=== PATIENT | female | born 1980 | race Caucasian/White ===

== ENCOUNTER 2016-04-19 09:43 | Emergency (ER) | payer OTHER ==
[~2016-04-19] VITALS: Ht 170.2 cm; Wt 115.5 kg
[~2016-04-19 09:43] MED LIST: NOMED
[2016-04-19 09:57] VITALS: BP 186/119; PULSE 80; RESP 15; O2SAT 97
--- NOTE | 2016-04-19 10:09 | ED.REPORT ---
HPI-Dental/Mouth Prob Date of Service Apr 19, 2016 ED Provider: Levar Perkins MD This is a 35 year old female presenting to the emergency department due to dental pain that began yesterday evening and worsened today. Pt reports breaking tooth #13 two months ago. Describes severe pain associated with sensitivity, was not improved with 600 mg ibuprofen. She has a dental appointment at [facility] today. Denies nausea, vomiting, or headache at this time. Nursing Notes Stated Complaint: LT SIDE UPPER TOOTH PAIN Chief Complaint: Dental Nursing Notes Reviewed: Yes Allergies: Coded Allergies: diphenhydramine HCl (Verified Allergy, Unknown, 08/11/15) Miscellaneous Medications No Historical Medication (No Historical Medication) Ea General Time Seen by MD: 10:08 Chief Complaint Tooth pain Hx Obtained From: Patient Arrived By: Walk-in Onset Occurred: Yesterday Symptom Duration: Since onset Severity: Current: Moderate Pertinent Negative: Pt denies other symptoms Recent Healthcare: No recent doctor visit, No recent hospitalization Similar Sx Previous: No Past Medical History Past Medical History previous necrotic abscess that was incised and drained Past Surgical History Pt denies Smoking History Current Every Day Smoker Social History Alcohol Use: "Social" Drug Use: THC Ambulatory Status Independent Review of Systems Constitutional: Denies: Chills, Fever Ears / Nose / Throat: Reports: Toothache, Denies: Earache bilateral, Nasal congestion Respiratory: Denies: Non-productive cough, Shortness of breath GI: Denies: Abdominal pain, Nausea, Vomiting Complete sys rev & neg: except as marked. Physical Exam Initial Vital Signs Vital Signs (First) Date Time Temp Pulse Resp B/P Pulse Ox O2 Delivery O2 Flow Rate FiO2 04/19/16 09:57 36.7 80 15 186/119 97 Room Air Initial VS: Reviewed General/Constitutional: Well-developed, Well-nourished Head / Eyes: Atraumatic, Normocephalic, PERRL Respiratory: Breath sounds normal, Clear to auscultation, No respiratory distress Cardiovascular: Regular rate & rhythm, Heart sounds normal, Intact distal pulses Abdomen / GI: Soft, Non-tender, No guarding, No rebound, No distention Extremities: Vascular intact, Neuro intact, No swelling, No tenderness Skin: Warm, Dry, No cyanosis Neurologic: Alert, Oriented, Nonfocal Psychiatric: Mood/affect normal, Behavior normal, Normal thought content ENT: Airway patent, Mucous membranes moist, Pharynx NL, No pooling of secretions, No trismus, No facial swelling Neck: Supple, No meningismus, Full range of motion, No adenopathy, No swelling , Non-tender, No masses Procedures Dental Nerve Block Dental Nerve Block Note: Left Block Performed by: ED physician Consent / Setup / Site Prep: Informed consent provided, Consent from patient Anesthesia: Inferior alveolar block Local Anesthesia: Bupivacaine 0.5% (6 ml) Post-Procedure / Complications: No complications, Condition improved, Tolerated procedure well, Patient stable, No bleeding Re-Eval/Medical Decision Med Decision/Clinical Course Left dental pain 1 day status post breaking tooth. Patient is going to the dentist today she is here for pain relief. She is given Toradol with improvement. I performed a left infra-alveolar nerve block with immediate pain control. She will go to the dentist today. No evidence of infection at this time. Re-Evaluation/Progress : Time of Eval: 11:00 Re-Evaluation/Progress Note: Dental nerve block Counseled Regarding: Diagnosis, Lab results, Need for follow-up Discharge & Departure Primary Impression: Toothache Disposition: Home Discharge Condition All VS Reviewed: Yes Condition: Stable Patient Instructions: Acute dental trauma (ED) Additional Instructions: Thank you for seeking care in the emergency department today. Follow up with your dentist today for further evaluation. Return to the emergency department for any new or worsening symptoms Referrals: Isabell Alejandro MD (PCP) Scribe Attestation Portions of this note were transcribed by Anny Anand. I, Dr. Perkins personally performed the history, physical exam and medical decision-making; I reviewed and confirmed the accuracy of the information in the transcribed note. Signed by: elida Shaver. 04/19/2016, 18:00. Levar Perkins MD Apr 19, 2016 10:09 ANNY ANAND Apr 19, 2016 10:17
[2016-04-19] MEDS ORDERED: Ketorolac 30 mg/mL 2 mL Inj IM ONE (10:10)
[2016-04-19] MEDS ORDERED: Bupivacaine 0.5% 50 mL Inj SUBQ ONE (10:40)
[2016-04-19] MEDS ORDERED: Bupivacaine 0.5%/EPI 50 mL Inj ONE (10:49)
[2016-04-19] MEDS ORDERED: Bupivacaine-MPF 0.5% 30 mL Inj ONE (10:50)
[2016-04-19 11:14] VITALS: BP 130/87; PULSE 63; RESP 16; O2SAT 97
== END 2016-04-19 11:15 | disposition home or self-care (01) ==
LOC: SED 09:43
DX: K08.89 Other specified disorders of teeth and supporting structures (principal); F17.200 Nicotine dependence, unspecified, uncomplicated; Z88.8 Allergy status to other drugs, medicaments and biological substances
CPT/HCPCS: 64400; 96372; 99284; J1885

== ENCOUNTER 2016-04-23 16:03 | Emergency (ER) | payer OTHER ==
[~2016-04-23] VITALS: Ht 167.6 cm; Wt 115.5 kg
[2016-04-23 16:16] VITALS: BP 122/81; PULSE 87; RESP 20; O2SAT 99
== END 2016-04-23 16:34 | disposition left against medical advice (07) ==
LOC: SED 16:03
DX: K08.89 Other specified disorders of teeth and supporting structures (principal); Z53.21 Procedure and treatment not carried out due to patient leaving prior to being seen by health care provider

== ENCOUNTER 2016-04-24 00:59 | Emergency (ER) | payer OTHER ==
[~2016-04-24] VITALS: Ht 167.6 cm; Wt 115.5 kg
[2016-04-24 01:02] VITALS: BP 161/106; PULSE 95; RESP 22; O2SAT 95
--- NOTE | 2016-04-24 01:26 | ED.REPORT ---
HPI-Dental/Mouth Prob Date of Service Apr 24, 2016 ED Provider: Cathryn Piper MD A 35 year old female with a history of dental caries and recent ED visits for dental pain presents to the ED complaining of tooth pain. The pt has a broken upper left tooth, which is causing significant pain. She denies difficulty breathing, difficulty swallowing, fevers, or chills. The pt is requesting a dental block to numb her tooth until her appointment with [facility] tomorrow. Nursing Notes Stated Complaint: TOOTH PAIN Chief Complaint: Dental Nursing Notes Reviewed: Yes Allergies: Coded Allergies: diphenhydramine HCl (Verified Allergy, Unknown, 08/11/15) Miscellaneous Medications No Historical Medication (No Historical Medication) Ea General Time Seen by MD: 01:24 Chief Complaint Tooth pain Hx Obtained From: Patient Arrived By: Walk-in Symptom Duration: Since onset Recent Healthcare: Recent doctor visit Similar Sx Previous: Yes Past Medical History Past Medical History previous necrotic abscess that was incised and drained dental caries Past Surgical History Pt denies Smoking History Current Every Day Smoker Social History Alcohol Use: "Social" Drug Use: THC Other Social History: Good social support Ambulatory Status Independent Review of Systems Review of Systems Note: denies difficulty breathing or swallowing Constitutional: Denies: Fever Ears / Nose / Throat: Reports: Toothache Respiratory: Denies: Non-productive cough GI: Denies: Abdominal pain Complete sys rev & neg: except as marked. Physical Exam Initial Vital Signs Vital Signs (First) Date Time Temp Pulse Resp B/P Pulse Ox O2 Delivery O2 Flow Rate FiO2 04/24/16 01:02 36.3 95 22 161/106 95 Room Air Initial VS: Reviewed ENT: Atraumatic, Airway patent, Mucous membranes moist extremely carious teeth with multiple fillings canine tooth left maxillary has a large defect, sublingual and submental spaces no surrounding erythema or edema no fluctuance not tender to percussion Neck: Atraumatic, Supple, Full range of motion General/Constitutional: Awake, Alert Head / Eyes: Atraumatic, Normocephalic, PERRL, EOMI Respiratory / Chest: Atraumatic, Breath sounds NL, Breath sounds = bilat, No respiratory distress Cardiovascular: Heart rate NL, Regular rhythm, Heart sounds NL Neurologic: Oriented X3, Speech NL, No motor deficits, No sensory deficits Abdomen: Atraumatic, Soft, Non-tender Back: Atraumatic, Full range of motion Upper Extremity / MS: Atraumatic, Full range of motion Lower Extremity / Pelvis / MS: Atraumatic, Full range of motion Skin: Atraumatic, Color NL, No rash, Warm, Dry Psychiatric: Affect NL, Mood NL Procedures Dental Nerve Block Dental Nerve Block Note: local block, upper left Time: 01:45 Block Performed by: ED physician Consent / Setup / Site Prep: Informed consent provided, Consent from patient , Time-out performed, Mucous membrane dried, Topical anesthetic gurinder, Hand hygiene observed, Stand sterile technique, Sterile drapes applied Local Anesthesia: Bupivacaine 0.5% Post-Procedure / Complications: No complications, Condition improved, Tolerated procedure well, Patient stable, No bleeding Re-Eval/Medical Decision Med Decision/Clinical Course 35-year-old female with multiple carious teeth here with dental pain. Differential diagnosis includes but is not limited to dental caries versus exposed nerve root versus apical abscess versus other dental abscess. Patient is just requesting numbing medicine for her mouth, and does not want anything further. Her exam is most consistent with an exposed nerve root and she has no evidence of infectious process. I have given her a bupivacaine block and she has an appointment tomorrow morning with dental. She is aware and amenable to discharge. Source of Hx: Old records Re-Evaluation/Progress : Time of Eval: 01:45 Patient Status: Condition improved Re-Evaluation/Progress Note: Pt rechecked, who is comfortable. She is informed of her diagnosis and the plan for discharge. The pt understands and agrees with the plan. All questions were addressed at this time. Counseled Regarding: Diagnosis, Need for follow-up, When/why to return to ED Discharge & Departure Primary Impression: Pain, dental Disposition: Home Discharge Condition All VS Reviewed: Yes Condition: Stable Patient Instructions: Acute dental trauma (ED), Dental Caries (ED) Additional Instructions: Thank you for entrusting us with your care. Keep your appointment at [facility] tomorrow. Return to the emergency department if you develop any new or worsening symptoms. Referrals: Isabell Alejandro MD (PCP) Scribe Attestation Portions of this note were transcribed by Kalia Noland. I, Dr. Piper personally performed the history, physical exam and medical decision-making; I reviewed and confirmed the accuracy of the information in the transcribed note. Signed by: Freddy Segundo, 04/24/2016 and 0212. copies to: Isabell Alejandro MD,Cathryn Marie MD Apr 24, 2016 01:26 KALIA NOLAND Apr 24, 2016 01:40
[2016-04-24] MEDS ORDERED: Bupivacaine-MPF 0.5% 30 mL Inj ONE (01:38)
[2016-04-24] MEDS ORDERED: Bupivacaine 0.5% 50 mL Inj SUBQ ONE (01:40)
== END 2016-04-24 01:58 | disposition home or self-care (01) ==
LOC: SED 00:59
DX: K08.89 Other specified disorders of teeth and supporting structures (principal); K02.9 Dental caries, unspecified; F17.210 Nicotine dependence, cigarettes, uncomplicated; F12.10 Cannabis abuse, uncomplicated; Z88.8 Allergy status to other drugs, medicaments and biological substances

== ENCOUNTER 2016-10-12 15:43 | Emergency (ER) | payer OTHER ==
[~2016-10-12] VITALS: Ht 170.2 cm; Wt 114.0 kg
[2016-10-12 15:51] VITALS: BP 132/79; PULSE 76; RESP 22; O2SAT 98
--- NOTE | 2016-10-12 15:51 | ED.REPORT ---
HPI-General Illness Date of Service Oct 12, 2016 ED Provider: Atilio Mcknight MD Patient is a 36 year old female who presents to the ED complaining of chest pain onset earlier today. Associated symptoms include a mildly productive cough. The patient rates the pain as an 8/10 and describes it as sharp, radiating around to the back bilaterally. She has not noticed anything that improves or exacerbates the pain. The patient reports that she had a cold last week. She denies fever, headache, chills, vision changes, abdominal pain, constipation, diarrhea, itching, rash, weakness, numbness, hematuria or hematochezia. No other complaints at this time. Nursing Notes Stated Complaint: CHEST PRESSURE Nursing Notes Reviewed: Yes Allergies: Coded Allergies: diphenhydramine HCl (Verified Allergy, Unknown, 08/11/15) Scheduled Azithromycin (Zithromax (Z-Pilo)) 250 Mg Tablet 250 MG PO DIRECTED Take two tablets by mouth on day 1, then take one tablet daily on days 2 through 5. Miscellaneous Medications No Historical Medication (No Historical Medication) Ea General Time Seen by MD: 15:50 Chief Complaint Chest pain Hx Obtained From: Patient Arrived By: Walk-in Sudden in Onset?: Yes Onset Occurred: 1 - 4 hours ago Symptom Duration: Since onset Location: : Chest Quality: Painful, Sharp Radiation: : Back Severity: Current: Pain level 8 out of 10 Recent Healthcare: Recent doctor visit Similar Sx Previous: No Past Medical History Past Medical History previous necrotic abscess that was incised and drained dental caries ovarian cysts Past Surgical History Pt denies Family History heart disease Smoking History Current Every Day Smoker Social History Alcohol Use: "Social" Drug Use: Denies drug use, THC Other Social History: Good social support Ambulatory Status Independent Review of Systems Full Review of Systems Constitutional: Denies: Chills, Fever Respiratory: Reports: Prod cough, clear, Denies: Shortness of breath Cardiovascular: Reports: Chest pain GI: Denies: Abdominal pain, Constipation, Diarrhea, Hematochezia, Nausea, Vomiting Female: Denies: Hematuria Musculoskeletal: Denies: Back pain Skin: Denies Itching, Denies Rash Neurologic: Denies: Headache, Numbness, Vision change, Weakness Complete sys rev & neg: except as marked. Physical Exam Nursing note and vitals reviewed. Constitutional: Well-developed, well-nourished. Not diaphoretic. Head: Normocephalic and atraumatic. Mouth/Throat: Oropharynx is clear and moist. No oropharyngeal exudate. Eyes: EOM are normal. Pupils are equal, round, and reactive to light. Neck: Supple, no tracheal deviation. Cardiovascular: Normal rate, regular rhythm. Equal and intact distal pulses throughout. Pulmonary/Chest: Effort normal and breath sounds normal. No respiratory distress. Abdominal: Soft. No distension. There is no tenderness rebound, or guarding. Bowel sounds present. Musculoskeletal: Range of motion grossly intact, moving all extremities. No edema or tenderness appreciated. Neurological: AOx3. Grossly nonfocal exam. Strength and sensation intact and equal to bilateral upper and lower extremities. Skin: Warm and dry, no rashes or pallor appreciated. Psychiatric: Appropriate mood and affect. Behavior appears normal. Vital Signs Vital Signs Date Time Temp Pulse Resp B/P Pulse Ox O2 Delivery O2 Flow Rate FiO2 10/12/16 19:42 36.8 95 18 120/68 95 Room Air 10/12/16 16:28 36.4 76 21 131/66 94 Nasal Cannula 2 10/12/16 15:51 36.4 76 22 132/79 98 Room Air Initial VS: Reviewed Interpretation & Diagnostics Lab Results Interpretation Result Diagram: 10/12/16 1604 10/12/16 1604 Test 10/12/16 16:04 White Blood Count 8.9th/mm3 (3.8-10.1) Red Blood Count 4.65mil/mm3 (3.90-5.20) Hemoglobin 12.7g/dL (12.0-15.6) Hematocrit 39.0% (35.0-46.0) Mean Corpuscular Volume 83.9fL (81-100) Mean Corpuscular Hemoglobin 27.3pg (27.0-35.0) Mean Corpuscular Hemoglobin Concent 32.6% (32.0-37.0) Red Cell Distribution Width 15.2% (12.3-15.4) Platelet Count 260bil/L (150-400) Neutrophils (%) (Auto) 48.8% (40-74) Lymphocytes (%) (Auto) 40.2% (14-46) Monocytes (%) (Auto) 8.4% (4-12) Eosinophils (%) (Auto) 2.2% (0-5) Basophils (%) (Auto) 0.2% (0-3) Prothrombin Time 10.5sec (8.1-12.5) Prothromb Time International Ratio 0.98ratio Sodium Level 138mEq/L (134-144) Potassium Level 3.8mEq/L (3.5-5.2) Chloride Level 101mEq/L (97-108) Carbon Dioxide Level 24mmol/L (18-29) Blood Urea Nitrogen 17mg/dL (6-20) Creatinine 0.77mg/dL (0.57-1.00) Estimat Glomerular Filtration Rate 120mL/min (>59) Glucose Level 107mg/dL (60-99) Calcium Level 9.1mg/dL (8.5-10.1) Magnesium Level 2.2mg/dL (1.6-2.6) Total Bilirubin 0.4mg/dL (0.0-1.2) Aspartate Amino Transf (AST/SGOT) 27U/L (0-50) Alanine Aminotransferase (ALT/SGPT) 25U/L (0-32) Alkaline Phosphatase 82U/L (25-150) Troponin T < 0.010ug/L (0.0-0.011) Pro-B-Type Natriuretic Peptide 49.23pg/mL (0-130) Total Protein 7.0g/dL (6.4-8.4) Albumin 4.0g/dL (3.4-5.0) Lipase 38U/L (13-60) ECG Interpretation ECG Interpretation: no acute ischemic changes Time: 13:49 Interpreted by: ED physician Normal ECG Interpretation: Normal rate (75), Normal sinus rhythm X-Ray Chest Interpretation Chest Xray Interpretation: IMPRESSION: Possible developing left infrahilar airspace disease may represent pneumonia or atelectasis. No heart failure. Dictated by: Ok Ordonez M.D. on 10/12/2016 at 15:21 Approved by: Ok Ordonez M.D. on 10/12/2016 at 15:22 View: Portable, 1 view Interpretation / Wet Read by: Interpret - Radiologist Re-Eval/Medical Decision Med Decision/Clinical Course In summary, 36-year-old female who presents to the ED for evaluation of nonexertional midsternal chest pain radiating around to the sides of her back since earlier today. Differential includes ACS, PE, PTX, aortic dissection, myocarditis/pericarditis, abdominal etiology such as cholecystitis, MSK pain. Pain has been constant since onset; troponin negative x 2. HEART score of 1. EKG demonstrates sinus rhythm with no acute ischemic changes. PERC negative. No evidence of pneumothorax on chest x-ray or exam. Pain not described as tearing through to the back, CXR w/ no evidence of widened mediastinum, normal neuro exam, and equal pulses to bilateral upper and lower extremities; aortic dissection discussed with the patient given radiation around to the back - explained that we could not completely rule out dissection without doing a CT scan, however I felt that it was very unlikely, especially in the setting of resolution of pain; after discussion with the patient, she felt like doing a CT scan here in the ED would be unnecessary, and this seems reasonable. Neither clinical presentation, exam, or EKG seem c/w pericarditis or myocarditis. No abdominal pain or tenderness. Rest of labs reviewed, unremarkable. Vital signs here stable, grossly within normal limits. CBC grossly within normal limits. CMP grossly within normal limits, including lipase. BNP normal. Patient given GI cocktail here in the ED with significant improvement in symptoms. Her chest x-ray does show a possible developing left infrahilar finding that may be consistent with pneumonia; patient started on antibiotics. Plan discharge home with very careful return precautions, PCP follow-up in the next 1-2 days to discuss today's visit and the findings above. Patient agreeable to plan, no further questions. Time of Eval: 18:32 Patient Status: Condition improved Re-Evaluation/Progress Note: Patient rates her pain as a 2/10. Discussed option of CT angio to rule out dissection. Patient declines at this time. Patient understands the risks. Time of Eval: 18:57 Re-Evaluation/Progress Note: Discussed results and plan for discharge. Patient understands and agrees to plan. All questions were addressed. Counseled Regarding: Diagnosis, Lab results, Need for follow-up, When/why to return to ED Discharge & Departure Primary Impression: Chest pain Chest pain type: unspecified Qualified Code: R07.9 - Chest pain, unspecified Disposition: Home Discharge Condition All VS Reviewed: Yes Condition: Stable Patient Instructions: Chest Pain (ED) Additional Instructions: Thank you for allowing us to be a part of your care in the ED today. Your emergency department results, including EKG, chest X-ray and labs are reassuring. I do not think that there is an emergent cause for your symptoms today that would require admission to the hospital; however, a clear cause of your symptoms was not identified. Your chest x-ray showed evidence of a developing pneumonia. Take the antibiotic as prescribed. Please schedule a follow up appointment with your primary care physician tomorrow for a recheck. Please return to the emergency department for any new or worsening symptoms including any shortness of breath, chest pain, one sided weakness/numbness, fevers, or chills, or if there's anything else of concern to you. Referrals: Isabell Alejandro MD (PCP) Freddy Attestation Portions of this note were transcribed by Ellie Portillo. I, Dr. Mcknight personally performed the history, physical exam and medical decision-making; I reviewed and confirmed the accuracy of the information in the transcribed note. Signed by: Freddy Saucedo, 10/12/16 copies to: Isabell Alejandro MD, William B MD Oct 12, 2016 15:51 Chandni Portillo Oct 12, 2016 16:04
[2016-10-12 16:18] LABS: BASOPHILS % (AUTO) 0.2 % (0-3); EOSINOPHILS % (AUTO) 2.2 % (0-5); MONOCYTES % (AUTO) 8.4 % (4-12); Mean Corpuscular Hemoglobin 27.3 pg (27.0-35.0); Mean Corpuscular Volume 83.9 fL (81-100); NEUTROPHILS % (AUTO) 48.8 % (40-74); Platelet Count 260 bil/L (150-400)
[2016-10-12] MEDS ORDERED: LidocaineVisc 2%:Antacid 1:1 10 mL Syringe PO SCH (16:20)
--- NOTE | 2016-10-12 16:24 | DRSVH ---
PROCEDURE: X-RAY CHEST ONE VIEW, PORTABLE ([id number]) INDICATIONS: CHEST PAIN TECHNIQUE: One view of the chest was acquired. COMPARISON: None. FINDINGS: Surgical changes and devices: None. Lungs and pleura: No lobar consolidation, large effusion, or pneumothorax is evident. There is quest ion of a developing left infrahilar airspace disease. Mediastinum: Mediastinal contours appear normal. Heart size is normal. Bones and chest wall: No suspicious bony lesions. Bilateral os acromiale is noted. Overlying soft tissues appear unremarkable. IMPRESSION: Possible developing left infrahilar airspace disease may represent pneumonia or atelectas is. No heart failure. Dictated by: Ok Ordonez M.D. on 10/12/2016 at 15:21 Approved by: Ok Ordonez M.D. on 10/12/2016 at 15:22
[2016-10-12 16:28] VITALS: BP 131/66; PULSE 76; RESP 21; O2SAT 94
[2016-10-12 16:34] LABS: INR 0.98 ratio
[2016-10-12 16:41] LABS: Lipase 38 U/L (13-60); Magnesium 2.2 mg/dL (1.6-2.6)
[2016-10-12 16:46] LABS: TROPONIN T < 0.010 ug/L (0.0-0.011)
[2016-10-12] MEDS ORDERED: AZIT250T4 PO (18:36)
[2016-10-12 19:42] VITALS: BP 120/68; PULSE 95; RESP 18; O2SAT 95
== END 2016-10-12 19:40 | disposition home or self-care (01) ==
LOC: SED 15:43
DX: R07.89 Other chest pain (principal); R05 Cough; F17.200 Nicotine dependence, unspecified, uncomplicated; Z88.8 Allergy status to other drugs, medicaments and biological substances